=== PATIENT | female | born 2000 ===

== ENCOUNTER 2021-02-27 22:26 | Emergency (ER) | payer SELFPAY ==
[2021-02-27] MEDS ORDERED: Sodium Chloride 0.9% 1,000 ML IV ONE (22:30)
[2021-02-27] MEDS ORDERED: Sodium Chloride 0.9% 10 ML Syringe FLUSH PRN (22:37)
[2021-02-27 23:19] LABS: CHLORIDE,CL 107 mmol/L (98-107); SODIUM,NA 144 mmol/L (136-145)
[2021-02-27 23:20] LABS: ANION GAP 14.4 mmol/L (5-15)
--- NOTE | 2021-02-27 23:36 | EDM.PDOC ---
ED HPI GENERAL MEDICAL PROBLEM - General Chief Complaint: Drug or Alcohol Abuse Stated Complaint: Intoxication, vomiting Time Seen by Provider: 02/27/21 22:35 Source of Information: Reports: Patient, EMS, Other History Limitations: Reports: Intoxication - History of Present Illness INITIAL COMMENTS - FREE TEXT/NARRATIVE: Pt. presents to ER after drinking heavily tonight. Pt. states that she consumed approx. 12 drinks containing hard alcohol. Pt. weighs approx. 50kg. Bystanders state that she was brought home where she developed a decreased level of consciousness and vomited around 6 times. She was able to clear her own airway and did not appear to have aspirated. She was hemodynamically for EMS, satting in the high 90% range. She was given IV zofran by EMS. There was no trauma. She did not strike her head. No reported street drug use. Pt. was becoming more responsive by the time she arrived in ER by ambulance. She related that she was not experiencing any chest pain, shortness of breath, headache, abdominal pain, or other worrisome signs/symptoms. Onset: Today Location: Reports: Generalized Associated Symptoms: Reports: Nausea/Vomiting Treatments [employer]: Reports: IV/IO, Other (see below) Other Treatments [employer]: Zofran - Related Data Allergies Allergy/AdvReac Type Severity Reaction Status Date / Time No Known Allergies Allergy Verified 02/27/21 22:37 Home Meds: Home Meds . [No Known Home Meds] 02/27/21 [History] Past Medical History - Past Health History Medical/Surgical History: Denies Medical/Surgical History Social & Family History - Recreational Drug Use Recreational Drug Use: Yes Recreational Drug Type: Reports: Marijuana/Hashish ED ROS GENERAL - Review of Systems Review Of Systems: Comprehensive ROS is negative, except as noted in HPI. ED EXAM, GENERAL - Physical Exam Exam: See Below Exam Limited By: No Limitations General Appearance: Alert, WD/WN, No Apparent Distress Eye Exam: Bilateral Eye: EOMI, Normal Fundi, Normal Inspection, PERRL Throat/Mouth: Normal Inspection, Normal Teeth, Normal Gums, Normal Oropharynx, Normal Voice, No Airway Compromise Head: Atraumatic, Normocephalic Neck: Normal Inspection, Supple, Non-Tender, Full Range of Motion Respiratory/Chest: No Respiratory Distress, Lungs Clear, Normal Breath Sounds, No Accessory Muscle Use, Chest Non-Tender Cardiovascular: Normal Peripheral Pulses, Regular Rate, Rhythm, No Edema, No JVD, No Murmur Peripheral Pulses: 4+: Radial (L) GI/Abdominal: Soft, Non-Tender, No Distention, No Mass (Female) Exam: Deferred Rectal (Female) Exam: Deferred Back Exam: Normal Inspection, Full Range of Motion Extremities: Normal Inspection, Normal Range of Motion, Non-Tender, No Pedal Edema, Normal Capillary Refill Neurological: Alert, Oriented, CN II-XII Intact, Normal Cognition, Normal Gait, No Motor/Sensory Deficits, Other (Initially pt. was lying on her side in bed, responsive only to strong verbal stimuli. Pt. became much more alert as her IV infused. Within approx. 30-40 min, pt. was alert, sitting up in bed, laughing with friend. She was alert to time, date, and place. ) Psychiatric: Normal Affect, Normal Mood Course - Vital Signs Last Recorded V/S: Last Vital Signs Temp 36.4 C 02/27/21 22:26 Pulse 99 02/27/21 22:26 Resp 16 02/27/21 23:23 BP 111/76 02/27/21 23:23 Pulse Ox 99 02/27/21 23:23 - Orders/Labs/Meds Orders: Active Orders 24 hr Category Date Time Status Sodium Chloride 0.9% [Saline Flush] Med 02/27/21 22:37 Active 10 ml FLUSH ASDIRECTED PRN Peripheral IV Insertion Adult [OM.PC] Routine Oth 02/27/21 22:38 Ordered Medication Orders Sodium Chloride (Sodium Chloride 0.9% 10 Ml Syringe) 10 ml FLUSH ASDIRECTED PRN PRN Reason: Keep Vein Open Labs: Laboratory Tests 02/27/21 02/27/21 02/27/21 Range/Units 22:54 22:54 22:54 WBC 6.7 (4.0-10.0) x10^3/uL RBC 3.87 L (4.00-5.50) x10^6/uL Hgb 13.1 (12.0-16.0) g/dL Hct 38.3 (33.0-47.0) % MCV 99.0 H (78.0-93.0) fL MCH 33.9 H (26.0-32.0) pg MCHC 34.2 (32.0-36.0) g/dL RDW Coeff of [place] 14.2 (10.0-15.0) % Plt Count 284 (130-400) x10^3/uL Neut % (Auto) 48.8 L (50.0-80.0) % Lymph % (Auto) 37.9 (25.0-50.0) % [place] % (Auto) 8.7 (2.0-11.0) % Eos % (Auto) 3.9 (0.0-4.0) % Baso % (Auto) 0.7 (0.2-1.2) % PT 9.9 (9.9-12.5) SEC INR 0.9 L (2.0-3.5) APTT (25.6-32.8) SEC Sodium 144 (136-145) mmol/L Potassium 3.4 L (3.5-5.1) mmol/L Chloride 107 (98-107) mmol/L Carbon Dioxide 26 (21-32) mmol/L Anion Gap 14.4 (5-15) mmol/L BUN 6 L (7-18) mg/dL Creatinine 0.7 (0.55-1.02) mg/dL Est Cr Clr Drug Dosing 99.30 mL/min Estimated GFR (MDRD) > 60 Glucose 88 (70-99) mg/dL Calcium 7.4 L (8.5-10.1) mg/dL Corrected Calcium 7.80 L (8.5-10.1) mg/dL Magnesium 2.0 (1.8-2.4) mg/dL Total Bilirubin 0.2 (0.2-1.0) mg/dL AST 18 (15-37) U/L ALT 17 (14-59) U/L Alkaline Phosphatase 83 (46-116) U/L Total Protein 7.3 (6.4-8.2) g/dL Albumin 3.5 (3.4-5.0) g/dL Globulin 3.8 Albumin/Globulin Ratio 0.92 Ethyl Alcohol 348 H* (0-3) mg/dL 02/27/21 Range/Units 22:54 WBC (4.0-10.0) x10^3/uL RBC (4.00-5.50) x10^6/uL Hgb (12.0-16.0) g/dL Hct (33.0-47.0) % MCV (78.0-93.0) fL MCH (26.0-32.0) pg MCHC (32.0-36.0) g/dL RDW Coeff of [place] (10.0-15.0) % Plt Count (130-400) x10^3/uL Neut % (Auto) (50.0-80.0) % Lymph % (Auto) (25.0-50.0) % [place] % (Auto) (2.0-11.0) % Eos % (Auto) (0.0-4.0) % Baso % (Auto) (0.2-1.2) % PT (9.9-12.5) SEC INR (2.0-3.5) APTT 23.2 L (25.6-32.8) SEC Sodium (136-145) mmol/L Potassium (3.5-5.1) mmol/L Chloride (98-107) mmol/L Carbon Dioxide (21-32) mmol/L Anion Gap (5-15) mmol/L BUN (7-18) mg/dL Creatinine (0.55-1.02) mg/dL Est Cr Clr Drug Dosing mL/min Estimated GFR (MDRD) Glucose (70-99) mg/dL Calcium (8.5-10.1) mg/dL Corrected Calcium (8.5-10.1) mg/dL Magnesium (1.8-2.4) mg/dL Total Bilirubin (0.2-1.0) mg/dL AST (15-37) U/L ALT (14-59) U/L Alkaline Phosphatase (46-116) U/L Total Protein (6.4-8.2) g/dL Albumin (3.4-5.0) g/dL Globulin Albumin/Globulin Ratio Ethyl Alcohol (0-3) mg/dL Meds: Medications Generic Name Dose Route Start Last Admin Trade Name Freq PRN Reason Stop Dose Admin Sodium Chloride 10 ml 02/27/21 22:37 Sodium Chloride 0.9% 10 Ml Syringe FLUSH ASDIRECTED PRN Keep Vein Open - Re-Assessments/Exams Free Text/Narrative Re-Assessment/Exam: Pt. was given a liter or NS IV. Pt. became more alert during her stay. She was awake, alert and cooperative. She was able to ambulate to bathroom. She was able to name family members and discuss the events of the day/evening. Departure - Departure Time of Disposition: 23:45 Disposition: Home, Self-Care 01 Clinical Impression: Intoxication - Discharge Information Instructions: Alcohol Intoxication, [id number] Referrals: Lawrence Cochran MD [Primary Care Provider] - Forms: ED Department Discharge Additional Instructions: Home to rest. Someone sober needs to stay with you. Make sure she sleeps on her side tonight. Drink plenty of fluids tomorrow. Return to ER/call 911 if she becomes less alert, responsive, or has troubles breathing. Sepsis Event Note (ED) - Evaluation Sepsis Screening Result: No Definite Risk - Focused Exam Vital Signs: Vital Signs Temp Pulse Resp BP Pulse Ox 02/27/21 23:23 16 111/76 99 02/27/21 22:26 36.4 C 99 19 101/66 100 - Problem List Review Problem List Initiated/Reviewed/Updated: Yes - My Orders Last 24 Hours: My Active Orders 02/27/21 22:37 Sodium Chloride 0.9% [Saline Flush] 10 ml FLUSH ASDIRECTED PRN 02/27/21 22:38 Peripheral IV Insertion Adult [OM.PC] Routine - Assessment/Plan Last 24 Hours: My Active Orders 02/27/21 22:37 Sodium Chloride 0.9% [Saline Flush] 10 ml FLUSH ASDIRECTED PRN 02/27/21 22:38 Peripheral IV Insertion Adult [OM.PC] Routine Plan: Pt. is awake, alert, and follows commands. She is certainly too alert to compel/force her to stay longer in the hospital. Pt. walks without difficulty. She has someone sober to stay with tonight. Pt. sister was notified and will be in contact with the patient tonight as well. Advised to return to ER should the patient develop any decreased level of consciousness, trouble breathing, or maintaining airway. Lateral recumbent positioning was encouraged. Pt. and her friend were educated on the dangers of heavy binge drinking of hard alcohol, particularly in an individual of her stature and weight. They both agree and will refrain from this risky behavior in the future.
== END 2021-02-27 23:40 | disposition home or self-care (01) ==
LOC: VM.ED 22:26 → EDBD 22:26 → VM.ED 23:40
DX: F10.129 Alcohol abuse with intoxication, unspecified (principal); Y90.8 Blood alcohol level of 240 mg/100 ml or more
CPT/HCPCS: 36415; 80053; 80307; 83735; 85025; 85610; 85730; 99283; 99284; J7030

== ENCOUNTER 2021-08-19 20:38 | Observation (INO) | payer MEDICAID ==
[2021-08-19] MEDS: Sodium Chloride 0.9% 1,000 ML IV ONE (20:56)
[2021-08-19 22:00] LABS: CHLORIDE,CL 108 mmol/L (98-107); SODIUM,NA 143 mmol/L (136-145)
[2021-08-19 22:03] LABS: ANION GAP 15.1 mmol/L (5-15)
[2021-08-19 22:08] LABS: BARBITURATE SCREEN,URINE NEGATIVE (NEGATIVE); BENZODIAZEPINES SCREEN,URINE NEGATIVE (NEGATIVE); BUPRENORPHINE SCREEN,URINE NEGATIVE (NEGATIVE); METHAMPHETAMINE SCREEN, URINE NEGATIVE (NEGATIVE); THC SCREEN,URINE 50 NG/ML POSITIVE (NEGATIVE)
[2021-08-19] MEDS: Sodium Chloride 0.9% 1,000 ML IV SCH (22:50)
--- NOTE | 2021-08-19 23:39 | EDM.PDOC ---
ED HPI GENERAL MEDICAL PROBLEM - General Chief Complaint: Behavioral/Psych Stated Complaint: UNRESPONSIVE Time Seen by Provider: 08/19/21 21:00 Source of Information: Reports: EMS History Limitations: Reports: Intoxication - History of Present Illness INITIAL COMMENTS - FREE TEXT/NARRATIVE: Екатерина is a 21 year old who presents per EMS with unresponsiveness/intoxication. Family reports they could not arouse her so EMS was called. Unsure level of alcohol intake. Unable to obtain ROS, patient obtunded but maintaining her own airway. Onset: Today Location: Reports: Generalized - Related Data Allergies Allergy/AdvReac Type Severity Reaction Status Date / Time No Known Allergies Allergy Verified 02/27/21 22:37 Home Meds: Home Meds . [No Known Home Meds] 02/27/21 [History] Past Medical History - Past Health History Medical/Surgical History: Denies Medical/Surgical History Social & Family History - Tobacco Use Tobacco Use Status *Q: Unknown Ever Used Tobacco ED ROS GENERAL - Review of Systems Review Of Systems: Unable To Obtain Reason Not Obtained: patient unresponsive except to painful stimuli - Physical Exam Exam: See Below Exam Limited By: Intoxication General Appearance: Obtunded Eye Exam: Bilateral Eye: PERRL Ears: Normal External Exam, Normal TMs Nose: Normal Inspection, Normal Mucosa, No Blood Throat/Mouth: Normal Inspection, Normal Oropharynx Head Exam: Normocephalic Neck: Normal Inspection, Supple, Non-Tender Respiratory/Chest: No Respiratory Distress, Lungs Clear, Normal Breath Sounds Cardiovascular: Regular Rate, Rhythm GI/Abdominal: Normal Bowel Sounds, Soft, Non-Tender Neuro Exam (Abbreviated): Unresponsive Extremities: Normal Inspection, No Pedal Edema, Normal Capillary Refill Skin Exam: Warm, Dry Course - Orders/Labs/Meds Orders: Active Orders 24 hr Category Date Time Status CORONAVIRUS COVID-19 EDUARDO [MOLEC] Stat Lab 08/19/21 22:45 Received Labs: Laboratory Tests 08/19/21 08/19/21 08/19/21 Range/Units 21:15 21:15 21:30 WBC 9.4 (4.0-10.0) x10^3/uL RBC 3.36 L (4.00-5.50) x10^6/uL Hgb 11.9 L (12.0-16.0) g/dL Hct 33.6 (33.0-47.0) % MCV 100.0 H (78.0-93.0) fL MCH 35.4 H (26.0-32.0) pg MCHC 35.4 (32.0-36.0) g/dL RDW Coeff of [place] 12.4 (10.0-15.0) % Plt Count 254 (130-400) x10^3/uL Immature Gran % (Auto) 0.10 (0.00-0.43) % Neut % (Auto) 58.6 (50.0-80.0) % Lymph % (Auto) 31.1 (25.0-50.0) % [place] % (Auto) 8.6 (2.0-11.0) % Eos % (Auto) 1.2 (0.0-4.0) % Baso % (Auto) 0.4 (0.2-1.2) % Neut # (Auto) 5.5 (1.8-7.7) x10^3/uL Lymph # (Auto) 2.9 (1.0-4.8) x10^3/uL [place] # (Auto) 0.8 (0.0-0.8) x10^3/uL Eos # (Auto) 0.1 (0.0-0.5) x10^3/uL Baso # (Auto) 0.0 (0.0-0.2) x10^3/uL Immature Gran # (Auto) 0.01 (0.00-0.07) x10^3/uL Sodium (136-145) mmol/L Potassium (3.5-5.1) mmol/L Chloride (98-107) mmol/L Carbon Dioxide (21-32) mmol/L Anion Gap (5-15) mmol/L BUN (7-18) mg/dL Creatinine (0.55-1.02) mg/dL Est Cr Clr Drug Dosing Estimated GFR (MDRD) Glucose (70-99) mg/dL Calcium (8.5-10.1) mg/dL Urine Color Yellow (YELLOW) Urine Appearance Clear (CLEAR) Urine pH 7.0 (5.0-8.0) Ur Specific [place] 1.010 Urine Protein Negative (NEGATIVE) mg/dL Urine Glucose (UA) Negative (NEGATIVE) mg/dL Urine Ketones Negative (NEGATIVE) mg/dL Urine Occult Blood Negative (NEGATIVE) Urine Nitrite Negative (NEGATIVE) Urine Bilirubin Negative (NEGATIVE) Urine Urobilinogen 0.2 (0.2) EU/dL Ur Leukocyte Esterase Negative (NEGATIVE) Urine Opiates Screen Negative (NEGATIVE) Ur Buprenorphine Scrn Negative (NEGATIVE) Ur Oxycodone Screen Negative (NEGATIVE) Urine Methadone Screen Negative (NEGATIVE) Ur Barbiturates Screen Negative (NEGATIVE) Ur Phencyclidine Scrn Negative (NEGATIVE) Ur Amphetamine Screen Negative (NEGATIVE) U Methamphetamines Scrn Negative (NEGATIVE) Urine MDMA Screen Negative (NEGATIVE) U Benzodiazepines Scrn Negative (NEGATIVE) U Cocaine Metab Screen Negative (NEGATIVE) U Marijuana (THC) Screen Positive H (NEGATIVE) Ethyl Alcohol (0-3) mg/dL 08/19/21 Range/Units 21:30 WBC (4.0-10.0) x10^3/uL RBC (4.00-5.50) x10^6/uL Hgb (12.0-16.0) g/dL Hct (33.0-47.0) % MCV (78.0-93.0) fL MCH (26.0-32.0) pg MCHC (32.0-36.0) g/dL RDW Coeff of [place] (10.0-15.0) % Plt Count (130-400) x10^3/uL Immature Gran % (Auto) (0.00-0.43) % Neut % (Auto) (50.0-80.0) % Lymph % (Auto) (25.0-50.0) % [place] % (Auto) (2.0-11.0) % Eos % (Auto) (0.0-4.0) % Baso % (Auto) (0.2-1.2) % Neut # (Auto) (1.8-7.7) x10^3/uL Lymph # (Auto) (1.0-4.8) x10^3/uL [place] # (Auto) (0.0-0.8) x10^3/uL Eos # (Auto) (0.0-0.5) x10^3/uL Baso # (Auto) (0.0-0.2) x10^3/uL Immature Gran # (Auto) (0.00-0.07) x10^3/uL Sodium 143 (136-145) mmol/L Potassium 3.1 L (3.5-5.1) mmol/L Chloride 108 H (98-107) mmol/L Carbon Dioxide 23 (21-32) mmol/L Anion Gap 15.1 H (5-15) mmol/L BUN 7 (7-18) mg/dL Creatinine 0.7 (0.55-1.02) mg/dL Est Cr Clr Drug Dosing TNP Estimated GFR (MDRD) > 60 Glucose 103 H (70-99) mg/dL Calcium 8.0 L (8.5-10.1) mg/dL Urine Color (YELLOW) Urine Appearance (CLEAR) Urine pH (5.0-8.0) Ur Specific [place] Urine Protein (NEGATIVE) mg/dL Urine Glucose (UA) (NEGATIVE) mg/dL Urine Ketones (NEGATIVE) mg/dL Urine Occult Blood (NEGATIVE) Urine Nitrite (NEGATIVE) Urine Bilirubin (NEGATIVE) Urine Urobilinogen (0.2) EU/dL Ur Leukocyte Esterase (NEGATIVE) Urine Opiates Screen (NEGATIVE) Ur Buprenorphine Scrn (NEGATIVE) Ur Oxycodone Screen (NEGATIVE) Urine Methadone Screen (NEGATIVE) Ur Barbiturates Screen (NEGATIVE) Ur Phencyclidine Scrn (NEGATIVE) Ur Amphetamine Screen (NEGATIVE) U Methamphetamines Scrn (NEGATIVE) Urine MDMA Screen (NEGATIVE) U Benzodiazepines Scrn (NEGATIVE) U Cocaine Metab Screen (NEGATIVE) U Marijuana (THC) Screen (NEGATIVE) Ethyl Alcohol 425 H* (0-3) mg/dL - Re-Assessments/Exams Free Text/Narrative Re-Assessment/Exam: 08/19/21 Labs obtained. IV normal saline started wide open due to unresponsive/intoxication. WBC noted at 9.4, hemoglobin 11.9. Sodium 143, potassium 3.1. UA is clear. urine drug screen positive for THC. Blood alcohol 425. 2315-Covid screen obtained due to admission to observation, did respond and try to withdraw from this. IV fluids infusing. 2345-Covid negative. Admit observation. Departure - Departure Time of Disposition: 23:44 Disposition: Refer to Observation Condition: Undetermined Clinical Impression: Intoxication - Discharge Information *PRESCRIPTION DRUG MONITORING PROGRAM REVIEWED*: No *COPY OF PRESCRIPTION DRUG MONITORING REPORT IN PATIENT ROBYB: No - Problem List & Annotations (1) Intoxication SNOMED Code(s): 14508915 Code(s): ZFK0913 - Status: Acute Priority: High Current Visit: Yes - Problem List Review Problem List Initiated/Reviewed/Updated: Yes - My Orders Last 24 Hours: My Active Orders 08/19/21 22:45 CORONAVIRUS COVID-19 EDUARDO [MOLEC] Stat - Assessment/Plan Admission H&P: Please use this note as an admission H&P Last 24 Hours: My Active Orders 08/19/21 22:45 CORONAVIRUS COVID-19 EDUARDO [MOLEC] Stat Assessment:: Intoxication Plan: ADmit observation. IV normal saline with potassium 20 meq at 125 ml/hr. marble setter. Will monitor.
[2021-08-19] MEDS ORDERED: Ondansetron 4 MG/2 ML SDV IV PRN (23:55)
[2021-08-19] MEDS ORDERED: Acetaminophen 325 MG Tab PO PRN (23:55)
[2021-08-19] MEDS ORDERED: Ondansetron 4 MG Tab.DIS PO PRN (23:55)
[2021-08-20] MEDS: NS + KCl 20mEq/L 1,000 ML IV SCH (01:55)
--- NOTE | 2021-08-20 06:38 | PCM.SN.2 ---
- Free Text/Narrative Note: Please use this note as a discharge summary. 0605-Called up to the floor to reevaluate Екатерина as she is pulling out her IVs, taking off her heart monitor and threatening to walk out as "no one cares about me anyway". States her boyfriend has given her 3 changes and she is out of options with him now. Relates her ex took her daughter and she is worried about never seeing her again. Was on the phone with her Dad and voicing that she was going to jump off a bridge. He admits he cannot take her home "and watch her every minute if she is suicidal". Patient is very frustrated and says "she is done". Visited with patient. Is agreeable to talking to a screener at the [facility] for suicide risk. States "she is an adult though and can just walk right out of here". Guillermo, screener from the [facility], contacted and directed to speak with patient. 0640-Guillermo from the [facility] returned call back. 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 Speaking with her myself, much more calm now. Does know that she needs to be here for her daughter and "get her shit together". Admits that she needs to stay away from "hard liquor as cannot control myself". Is agreeable to seeing a counselor today at 2 pm in [place] as part of her care/discharge plan. Assessment of patient much improved. Alert, conversive, oriented. Lung sounds are clear. Regular heart tones. Time Documentation
== END 2021-08-20 08:35 | disposition home or self-care (01) ==
LOC: VM.ED 20:38 → VM.MS 22:53
PROVIDERS: ADMIT Physician Assistant Medical; ATTEND Physician Assistant Medical
DX: F10.129 Alcohol abuse with intoxication, unspecified (principal); R45.851 Suicidal ideations; Z20.822 Contact with and (suspected) exposure to COVID-19
CPT/HCPCS: 36415; 80048; 80305-QW; 80307; 81003; 85025; 99217; 99220; 99285; G0378; J3480; J7030; U0002